=== PATIENT | male | born 1950 | race Caucasian/White ===

== ENCOUNTER → 2019-09-30 07:48 | Outpatient (CLI) | payer OTHER, SELFPAY ==
--- NOTE | ~2019-09-30 | CT_ITS ---
EXAMINATION:CT lung screening DATE: 09/30/2019 10:22 INDICATION: Personal history of tobacco dependence. Current smoker with 30 pack year history. TECHNIQUE: Computed tomography (CT) of the chest was performed without intravenous contrast. Automate d exposure control and iterative reconstruction technique were employed. The dose-length product (DLP ) was 85.83 mGy-cm. COMPARISON: Chest CT 03/07/2017 FINDINGS: There is mild emphysema. There is mild scarring at the lung apices, right worse in left. Ag ain seen is mild peripheral rounded atelectasis in right lung. There is chronic mild pleural thickeni ng in right hemithorax with a lower lung predominance. Calcified right lung nodules and calcified rig ht hilar and mediastinal lymph nodes are consistent with old granulomatous disease. No pleural effusi on. The heart size is normal. There are coronary artery calcifications. There are calcifications of t he aortic valve. There is a 3 mm stone in left kidney. There are bridging endplate osteophytes at mul tiple levels in the spine, consistent with diffuse idiopathic skeletal hyperostosis (DISH). IMPRESSION: 1. Lung-RADS category 2: Benign appearance or behavior. Continue annual screening with noncontrast lo w-dose chest CT in 12 months. Reviewed, dictated and finalized at location A. RVISOR COLD ROLLING IMPRESSION: 1. Lung-RADS category 2: Benign appearance or behavior. Continue annual screeni ng with noncontrast low-dose chest CT in 12 months.
== END ==
PROVIDERS: PCP Internal Medicine; Visit Provider Internal Medicine
DX: Z12.2 Encounter for screening for malignant neoplasm of respiratory organs (principal); Z87.891 Personal history of nicotine dependence
CPT/HCPCS: G0297

== ENCOUNTER → 2020-06-09 15:19 | Outpatient (CLI) | payer OTHER, SELFPAY ==
--- NOTE | ~2020-06-09 | XR_ITS ---
EXAMINATION: XR chest 2V DATE: 06/09/2020 15:37 INDICATION: Other chest pain TECHNIQUE: PA and lateral views of the chest are obtained. COMPARISON: None available FINDINGS: There are areas of chronic scarring and atelectasis of the lungs. Chronic pleural thickenin g is noted on the right. The lungs are free of acute opacities. There is no pleural effusion or pneum othorax. The cardiomediastinal silhouette is normal. There are bridging osteophytes at multiple level s in the spine, consistent with diffuse idiopathic skeletal hyperostosis (DISH). 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 IMPRESSION: 1. No acute cardiopulmonary abnormality. Reviewed, dictated and finalized at location A.
== END ==
PROVIDERS: PCP Internal Medicine; Visit Provider Internal Medicine
DX: R07.89 Other chest pain (principal)
CPT/HCPCS: 71046

== ENCOUNTER 2020-10-03 09:22 | Outpatient (CLI) | payer OTHER, SELFPAY ==
--- NOTE | ~2020-10-03 | CT_ITS ---
EXAMINATION: CT lung screening DATE: 10/03/2020 10:05 INDICATION: Personal history of tobacco use. TECHNIQUE: Computed tomography (CT) of the chest was performed without intravenous contrast. The dose -length product was 103.02 mGy-cm. Automated exposure control and iterative reconstruction technique were employed. COMPARISON: CT dated 09/30/2019 FINDINGS: There is bilateral lower lobe atelectasis/scarring with adjacent pleural thickening. Focal pleural thickening right lower lobe, image 96, measures 2.8 x 1.1 cm, likely rounded atelectasis. The re is plaque-like pleural thickening in the left lower lobe laterally as well with adjacent parenchym al scarring/atelectasis. No thoracic lymphadenopathy. Heart size normal. Small left pleural effusion. There is biapical pleural thickening/scarring. Mild emphysema. No endobronchial lesions. No thoracic lymphadenopathy. Heart size normal. Mild thoracic spondylosis. No acute osseous abnormality. There i s coronary artery calcification. There are calcifications of the aortic valve. There is diffuse idiop athic skeletal hyperostosis (DISH) of the thoracic spine. IMPRESSION: 1. Lung-RADS category 2: Benign appearance or behavior. Continue annual screening with noncontrast lo w-dose chest CT in 12 months. Reviewed, dictated and finalized at location B. L DRAWER IMPRESSION: 1. Lung-RADS category 2: Benign appearance or behavior. Continue annual screeni ng with noncontrast low-dose chest CT in 12 months.
== END 2020-10-03 09:23 | disposition home or self-care (01) ==
PROVIDERS: PCP Internal Medicine; Visit Provider Internal Medicine
DX: Z12.2 Encounter for screening for malignant neoplasm of respiratory organs (principal); Z87.891 Personal history of nicotine dependence
CPT/HCPCS: 71271

== ENCOUNTER → 2021-06-07 09:19 | Outpatient (CLI) | payer OTHER, SELFPAY ==
[2021-06-07 19:23] LABS: SARS-CoV-2 RNA PCR Negative
== END ==
PROVIDERS: PCP Internal Medicine; Visit Provider Internal Medicine
DX: R68.89 Other general symptoms and signs (principal); Z20.822 Contact with and (suspected) exposure to COVID-19
CPT/HCPCS: C9803; U0003; U0005

== ENCOUNTER 2022-05-09 10:23 | Outpatient (CLI) | payer OTHER, SELFPAY ==
--- NOTE | ~2022-05-09 | CT_ITS ---
EXAMINATION: CT lung screening DATE: 05/09/2022 10:50 INDICATION: Personal history of nicotine dependence, current smoker with 50 pack year history TECHNIQUE: Computed tomography (CT) of the chest was performed without intravenous contrast. The dose -length product (DLP) was 68.48 mGy-cm. Automated exposure control and iterative reconstruction techn ique were employed. COMPARISON: 10/03/2020 FINDINGS: There is moderate emphysema. There are chronic areas of scarring in the lung apices and low er lobes. No suspicious pulmonary nodules are identified. No pleural effusion or pneumothorax. Calcif ied right hilar and mediastinal lymph nodes are consistent with old granulomatous disease. No patholo gically enlarged thoracic lymph nodes are identified. The heart size is normal. Calcified coronary ar eb atherosclerosis is noted. There are bridging osteophytes at multiple levels in the spine, consis tent with diffuse idiopathic skeletal hyperostosis (DISH). There is a 3 mm nonobstructing stone of th e left kidney upper pole. IMPRESSION: 1. Lung-RADS category 2: Benign appearance or behavior. Continue annual screening with noncontrast lo w-dose chest CT in 12 months. Reviewed, dictated and finalized at location B. IMPRESSION: 1. Lung-RADS category 2: Benign appearance or behavior. Continue annual screeni ng with noncontrast low-dose chest CT in 12 months.
== END 2022-05-09 10:24 | disposition home or self-care (01) ==
PROVIDERS: PCP Internal Medicine; Visit Provider Internal Medicine
DX: Z12.2 Encounter for screening for malignant neoplasm of respiratory organs (principal); Z72.0 Tobacco use
CPT/HCPCS: 71271

== ENCOUNTER 2025-05-20 06:45 | Outpatient (CLI) | payer MEDICARE, SELFPAY ==
--- NOTE | ~2025-05-20 | XR_ITS ---
EXAMINATION: XR chest 2V, 05/20/2025 7:00 CDT HISTORY: R05.1 - Acute cough COMPARISON: No comparisons available. Technique: 2 views obtained. Findings: COPD changes with trace effusions. No pneumothorax. Heart is normal size. Mediastinal and hilar contours are within normal limits. Bony thorax no acute abnormality. Impression: Trace effusions Reviewed, dictated and finalized at location A. Impression: Trace effusions
--- OUTSIDE RECORDS SUMMARY | 2025-05-20 06:50 | XMS_ITS | Encounter Summary ---
Author Organization [facility] Address [address] [place] [address] Care Team Providers Care Converting Operator Name Role Phone Shady Alas MD Primary Care Provider [phone] Reason for Visit * Reason Onset Date Comments Medication Issue 09/13/2023 Encounter Details Date Type Department Care Team (Late st Contact Info) Description 09/13/2023 Telephone [facility] - Centralized Scheduling [address] [place] [address] Sandra Grey MD [address] [place] [address] Medication Issue Social History Tobacco Use Types Packs/Day Years Used Date Smoking Tobacco: Former Cigarettes Q uit: 02/01/2019 Smokeless Tobacco: Never Alcohol Use Standard Drinks/Week Comments Never 0 (1 standard drink = 0.6 oz pur e alcohol) Sex and Gender Information Value Date Recorded Sex Assigned at Not on file Legal Sex Male 5:59 AM 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 Garcia Please call pt Pt has already started Taltz. He was supposed to do loading dose of 160mg on day 1, then 80mg every 2 weeks for 12 weeks. Has he completed the 12 weeks? Once he does, then he needs 80mg every 4 weeks. Please let pharmacy know correct dose based on where he is in the dosing schedule. Please Let me know if questions Thank you. OW FABRIC LOOM FIXER * Telephone Encounter - Priya Langley - 09/13/2023 3:11 PM CST Needs clarification to lakhwinder patient needs a loading dose of Taltz 80mg 1 ml FAX [phone] OW FABRIC LOOM FIXER documented in this encounter Plan of Treatment Upcoming Encounters Date Type Department Care Team (Late st Contact Info) Description 07/14/2025 8:40 AM NARROW FABRIC LOOM FIXER Office Visit [facility] - Dermatology [address] [place] [address], [facility] [place] [address] Sandra Grey MD [address] [place] [address] [address] [place] [address] documented as of this encounter Visit Diagnoses Not on filedocumented in this encounter Care Teams Converting Operator Relationship Specialty Start Date End Date Shady Alas MD [address] [place] [address] PCP - General 06/11/22 documented as of this encounter
--- OUTSIDE RECORDS SUMMARY | 2025-05-20 06:51 | XMS_ITS | Clinical Summary ---
Author Organization [facility] Address [address] [facility] [place] [address] Care Team Providers Care Studio Sales Associate Name Role Phone Shady Alas MD Primary Care Provider [phone] Source Comments [facility],non-owned Affiliates and Associated Physician Practices is amultiple site organization consisting of ambulatory clinics and hospital sitesin [place], [place], [place] and [place]. This disclosure is being madepursuant to the Care Everywhere program and may not contain all information available regarding this patient. Last updated 18.[facility] Allergies No known active allergies Medications * Be aware that medications may not be up to date on this document. Alwaysverify current medications with the patient. Rosuvastatin Calcium (CRESTOR PO) Active levothyroxine (Synthroid) 75 MCG tablet Take 1 (one) tablet by mouth once daily 2 Active triamcinolone acetonide (Kenalog) 0.1 % ointmentIndica tions:Other psoriasis Apply to palms of hands and soles of feet twice daily. 30 day supply. 80 g 3 2 Active clobetasol (Temovate) 0.05 % ointment Apply to affected areas on hands and feet twice daily. 30 days supply. 60 g 3 4 Active Additional Information Patient not taking.Reported on 11/25/2024 risankizumab-r zaa (Skyrizi Pen) 150 MG/ML injectionIndic ations:Other psoriasis Inject 1mL subcutaneously every 12 weeks. 12 week supply. 1 mL 2 Active Active Problems Problem Noted Date Diagnosed Date History of psoriatic arthritis 12/11/2022 Other psoriasis 06/27/2022 Encounter for long-term current use of high risk medication 06/27/2022 Immunizations Immunization Administration Dates Next Due INFLUENZA VACCINE 05/21/2022 Social History Tobacco Use Types Packs/Day Years Used Date Smoking Tobacco: Former Cigarettes Q uit: 02/01/2019 Smokeless Tobacco: Never Tobacco Cessation:Counseling Given: No Alcohol Use Standard Drinks/Week Comments Never 0 (1 standard drink = 0.6 oz pur e alcohol) Sex and Gender Information Value Date Recorded Sex Assigned at Not on file Legal 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 Gender Identity Not on file Sexual Orientation Not on file Last Filed Vital Signs Vital Sign Reading Time Taken Comments Blood Pressure 118/64 02/08/2019 10:23 AM CDT Pulse 66 02/08/2019 10:23 AM CDT Temperature 36.6 C (97.9 F) 02/08/2019 10:23 AM CDT Respiratory Rate 15 02/08/2019 10:23 AM CDT Oxygen Saturation 93% 02/08/2019 10:23 AM CDT Inhaled Oxygen Concentration - - Weight 68 kg (150 lb) 06/27/2022 10:02 AM CDT Height 167.6 cm (5' 6) 06/27/2022 10:02 AM CDT Body Mass Index 24.21 06/27/2022 10:02 AM CDT Plan of Treatment Upcoming Encounters Date Type Department Care Team (Late st Contact Info) Description 07/14/2025 8:40 AM SHEET METAL DUCT INSTALLER HELPER Office Visit [facility] - Dermatology [address] [place] [address], [place] [phone] Sandra Grey MD [address] [place] [address] [address] [place] [address] Health Maintenance Due Date Last Done Comments MEDICARE AWV 12 MONTHS 1950 HEPATITIS C SCREENING 05/10/1966 DTAP/TDAP/TD VACCINES (1 - Tdap) 1967 PNEUMOCOCCAL VACCINE 50+ (1 of 1 - PCV) 1998 ZOSTER VACCINE (1 of 2) 1998 Respiratory Syncytial Virus (RSV) Vaccine Pt: or over 60 yrs (1 - 1-dose 75+ series) 2023 DEPRESSION SCREENING 08/26/2024 COVID-19 VACCINE ( - 2024- season) 2025 05/21/2022, 12/18/2021, 04/11/2021, Additional history exists INFLUENZA VACCINE (#1) 2025 , 05/26/2021, 04/24/2020, Additional history exists HEPATITIS B VACCINE Aged Out No longe r eligible based on patient's age to complete this topic HIB VACCINE Aged Out No longer eligi ble based on patient's age to complete this topic HPV VACCINE Aged Out No longer eligi ble based on patient's age to complete this topic MENINGOCOCCAL (Group B) VACCINE SHARED DECISION-MAKING Aged Out No longer eligible based on patient's age to complete this topic MENINGOCOCCAL GROUPS A/C/Y/W VACCINE Aged Out No longer eligible based on patient's age to complete this topic Insurance MEDICARE MEDICARE SUPPLEMENT PAYOR GENERIC Care Teams Studio Sales Associate Relationship Specialty Start Date End Date Shady Alas MD [address] [place] [address] PCP - General 06/11/22
--- OUTSIDE RECORDS SUMMARY | 2025-05-20 06:51 | XMS_ITS | Clinical Summary ---
Author Organization [facility] [address] Address [address] [place] [address] Care Team Providers Care Recovery Rn Name Role Phone Unknown, Notinfile Primary Care Provider Unavail able Allergies No known active allergies Medications clobetasoL (TEMOVATE) 0.05 % ointment APPLY OINTMENT TOPICALLY TO AFFECTED AREA TWICE DAILY TO HANDS AND FEET 4 Active Taltz Autoinjector auto-injector 4 Active levothyroxine (SYNTHROID) 75 mcg tablet Take 1 tablet (75 mcg total) by mouth daily 4 Active rosuvastatin (CRESTOR) 20 mg tablet Take 1 tablet (20 mg total) by mouth daily 4 Active triamcinolone (KENALOG) 0.1 % ointment Apply to palms of hands and soles of feet twice daily. 30 day supply. 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 Gender Identity Not on file Sexual Orientation Not on file Obstetrics History Last Filed Vital Signs Vital Sign Reading Time Taken Comments Blood Pressure 144/64 03/10/2024 11:57 AM CDT Pulse 66 03/10/2024 11:57 AM CDT Temperature 36.6 C (97.8 F) 03/10/2024 11:57 AM CDT Respiratory Rate 20 03/10/2024 11:57 AM CDT Oxygen Saturation 99% 03/10/2024 11:57 AM CDT Inhaled Oxygen Concentration - - Weight 63.5 kg (140 lb) 03/10/2024 11:57 AM CDT pt stated Height 167.6 cm (5' 6) 03/10/2024 11:57 AM CDT Body Mass Index 22.6 03/10/2024 11:57 AM CDT Plan of Treatment Health Maintenance Due Date Last Done Comments Depression Screening 1950 Fall Risk Assessment 1950 Hepatitis C Screening 1950 Hepatitis B Screening 1966 Well Visit 65+ 2013 DTaP/Tdap/Td Vaccine (2 - Td or Tdap) 01/21/2024 01/20/2014 Covid-19 Vaccine (7 - 2024-2 6 season) 2025 06/21/2023, 05/21/2022, 12/18/2021, Additional history exists Influenza Vaccine (#1) 2025 , 05/21/2022, 05/26/2021, Additional history exists Pneumococcal vaccine 65+ Completed 019, 05/29/2017, 05/05/2009 Zoster Vaccine Completed 09/25/2019, 06/01/[address] [employer] Care Teams Recovery Rn Relationship Specialty Start Date End Date Unknown, Notinfile PCP - General 03/10/24
--- OUTSIDE RECORDS SUMMARY | 2025-05-20 06:51 | XMS_ITS | Encounter Summary ---
Author Organization [facility] Address [address] [place] [address] Care Team Providers Care Train Brakeman Name Role Phone Shady Alas MD Primary Care Provider [phone] Reason for Visit * Reason Onset Date Comments Medication Issue 06/15/2024 Encounter Details Date Type Department Care Team (Late st Contact Info) Description 06/15/2024 Telephone [facility] - Centralized Scheduling [address] [place] [phone] Sandra Grey MD [address] [place] [address] Medication Issue Social History Tobacco Use Types Packs/Day Years Used Date Smoking Tobacco: Former Cigarettes Q uit: 02/01/2019 Smokeless Tobacco: Never Alcohol Use Standard Drinks/Week Comments Never 0 (1 standard drink = 0.6 oz pur e alcohol) Sex and Gender Information Value Date Recorded Sex Assigned at Not on file Legal Sex Male 5:59 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 Bryan Artis * Telephone Encounter - Sandra Grey MD - 06/26/2024 10:31 AM CDT MAs Please let pt know we are stopping Taltz and starting new Skyrizi Thank you. * Telephone Encounter - Priya Langley - 06/15/2024 3:38 PM CDT Pharmacy needs clarification of patient's regimen. Will the patient be taking risankizumab-rzaa (Skyrizi Pen) 150 MG/ML injection and or Taltz 80 MG/ML auto- injector pen documented in this encounter Plan of Treatment Upcoming Encounters Date Type Department Care Team (Late st Contact Info) Description 07/14/2025 8:40 AM INTEGRATED LOGISTICS SUPPORT MANAGER Office Visit [facility] - Dermatology [address] [place] [address], [facility] [place] [address] Sandra Grey MD [address] [place] [address] [address] [place] [address] documented as of this encounter Visit Diagnoses Not on filedocumented in this encounter Care Teams Train Brakeman Relationship Specialty Start Date End Date Shady Alas MD [address] [place] [address] PCP - General 06/11/22 documented as of this encounter
--- OUTSIDE RECORDS SUMMARY | 2025-05-20 06:51 | XMS_ITS | Clinical Summary ---
Author Organization [facility] Address [address] [place] [address] Care Team Providers Care Turnaround Planner Name Role Phone Unavailable Primary Care Provider Unavailabl e Social History Tobacco Use Types Packs/Day Years Used Date Smoking Tobacco: Never Assessed Sex and Gender Information Value Date Recorded Sex Assigned at Not on file Legal Sex Male 8:23 AM CDT Gender Identity Not on file Sexual Orientation Not on file Plan of Treatment Health Maintenance Due Date Last Done Comments Hepatitis C Virus (HCV) Screening 1950 Respiratory Syncytial Virus (RSV) Immunization (Adult) (1 - 1-dose 75+ series) 2023 Influenza Immunization (#1) 04/26/202504/27, 05/15/2018, 05/29/2017, Additional history exists SARS-COV-2 Immunization ( season) 2025 DTaP/Tdap/Td Immunization Discontinued 01/20/2014 TdaP Immunization Completed 01/20/2014 Pneumococcal Immunization (50+ years) Completed 06/15/2019, 05/29/2017, 05/05/2009 Pneumococcal Immunization Combined Discontinued 06/15/2019, 05/29/2017, 05/05/2009 Zoster Immunization Completed 09/25/2019, 9 Hepatitis B Immunization Aged Out No longer eligible based on patient's age to complete this topic Human Papillomavirus (HPV) Immunization Aged Out No longer eligible based on patient's age to complete this topic Meningococcal Immunization (ACWY) Aged Out No longer eligible based on patient's age to complete this topic Rotavirus Immunization Aged Out No lo nger eligible based on patient's age to complete this topic
--- OUTSIDE RECORDS SUMMARY | 2025-05-20 06:51 | XMS_ITS | Clinical Summary ---
Author Organization [facility] Address [address] [place] [address] Care Team Providers Care Saw Repairer Name Role Phone Unavailable Primary Care Provider Unavailabl e Social History Tobacco Use Types Packs/Day Years Used Date Smoking Tobacco: Never Assessed Sex and Gender Information Value Date Recorded Sex Assigned at Not on file Legal Sex Male 7:41 PM CDT Gender Identity Not on file Sexual Orientation Not on file Plan of Treatment Health Maintenance Due Date Last Done Comments Hepatitis C 1968 DTaP, Tdap and Td Vaccines ( 1 - Tdap) 1967 Pneumococcal Vaccine: 50+ Ye ars (1 of 1 - PCV) 1998 Zoster Vaccines (1 of 2) 1998 RSV Immunization or 60+ Years (1 - 1-dose 75+ series) 2023 COVID-19 Vaccine ( - 2023-2 5 season) 2025 Meningococcal B Vaccine Aged Out No l onger eligible based on patient's age to complete this topic Meningococcal Vaccine Aged Out No storm radames eligible based on patient's age to complete this topic RSV Immunizations Under 20 Months Aged Out No longer eligible based on patient's age to complete this topic
== END 2025-05-20 06:46 | disposition home or self-care (01) ==
PROVIDERS: PCP Nurse Practitioner; Visit Provider Nurse Practitioner
DX: R05.1 Acute cough (principal); J44.9 Chronic obstructive pulmonary disease, unspecified
CPT/HCPCS: 71046